=== PATIENT | female | born 1985 | race Caucasian/White ===

== ENCOUNTER 2017-10-30 11:04 | Emergency (ER) | payer OTHER ==
[~2017-10-30] VITALS: Ht 152.4 cm; Wt 68.0 kg
--- NOTE | ~2017-10-30 | EKG ---
[place] [address] [place] [facility] [place] [address] ELECTROCARDIOGRAM REPORT Name: SHANIQUA MAIER [facility] [id number] Admission: 10/30/17 Attend Phys: Discharge: 10/30/17 Date of : 81 Report #: [id number] THIS REPORT FOR: //name// [facility] ED Test Date: 2017-10-30 Test Time: 11:09:37 Pat Name: SHANIQUA MAIER Department: Room: Gender: F Business Development Officer: CALLY : 1985 Requested By: Cayla Narvaez Order Number: [id number] MD: Peterson Tinajero Measurements Intervals [place] Rate: 76 P: 27 DC: 155 QRS: 13 QRSD: 100 T: 16 QT: 412 QTc: 464 Interpretive Statements Sinus rhythm No significant abnormality No previous ECG available for comparison Electronically Signed On 10-31-2017 8:04:31 [employer] by Peterson Tinajero [email or web address] <ELECTRONICALLY SIGNED> By: Peterson Tinajero MD, [facility] 10/31/17 [id number] Peterson Tinajero MD, FACC /EPI
[2017-10-30 11:41] LABS: BASOPHILS 0.6 % (0.0-2.0); EOSINOPHILS 1.1 % (0.0-3.0); HEMATOCRIT 39.9 % (37.0-47.0); HEMOGLOBIN 13.1 gm/dL (12.0-15.0); LYMPHOCYTES 28.4 % (24.0-44.0); MCH 27.9 pg (26.0-34.0); MCHC 32.9 g/dL (28.0-37.0); MCV 84.9 fL (80.0-100.0); MONOCYTES 4.3 % (1.0-8.0); PLATELET COUNT 274 thou/uL (150-400); POLYS 65.6 % (36.0-66.0); RDW 14.2 % (10.5-14.5); WBC 10.7 thou/uL (4.0-11.0)
[2017-10-30 11:46] LABS: ANION GAP 8 mmol/L (7-16); BUN 13 mg/dL (7-18); CALCIUM 9.2 mg/dL (8.5-10.1); CHLORIDE 106 mmol/L (98-107); CO2 27 mmol/L (21-32); CREATININE 1.1 mg/dL (0.6-1.0); GLUCOSE 107 mg/dL (74-106); POTASSIUM 3.9 mmol/L (3.5-5.1); SODIUM 141 mmol/L (136-145)
[2017-10-30 11:54] LABS: TROPONIN-I < 0.04 ng/mL (<0.06)
[2017-10-30] MEDS ORDERED: ATIVAN0.5 MG PO (12:42)
== END 2017-10-30 12:57 | disposition home or self-care (01) ==
LOC: ER 11:04
PROVIDERS: Emergency Medicine
DX: M79.602 Pain in left arm (principal); R07.9 Chest pain, unspecified